=== PATIENT | female | born 1945 | race African-American/Black ===

== ENCOUNTER → 2017-01-03 | Outpatient (CLI) | payer MEDICARE, OTHER ==
[~2017-01-03] MED LIST: ACETAMINOPHEN500 M2 PO; AMANTADINE100 M1 PO; AMLODIPINE BESY10 MG PO; ASPIRIN81 MG PO; AUGMENTIN PO; BACLOFEN10 MG PO; BENZTROPINE MESY2 MG PO; COGENTIN PO; COMBIVENT; DILANTIN PO; GEODON60 MG PO; GLIPIZIDE10 MG PO; GLUCOPHAGE500 M1 PO; HALDOL PO; HALOPERIDOL10 MG PO; KEFLEX PO; LIPITOR PO; LO-DOSE ASPIRIN81 M1 PO; LOTENSIN20 MG PO; LOVASTATIN20 M2 PO; LOVASTATIN20 MG PO; MULTI-VITAMIN1 EAC1 PO; MULTIPLE VITAMI1 T11 PO; NORVASC PO; NORVASC10 MG PO; PHENYTOIN SODI100 M4 PO; PHENYTOIN SODI300 MG PO; Q PAP PO; Q-PAP325 MG PO; SEROQUEL PO; SEROQUEL400 MG PO; VOLTAREN75 MG PO; ZIPRASIDONE HCL60 MG PO
--- NOTE | ~2017-01-03 | CT57 ---
[facility] A Service of [facility] RADIOLOGY TEXT RESULTS PATIENT: JANUSZ RODRÍGUEZ LOCATION: [facility] : 47 UNIT #: [id number] AGE: [address]: Grace Cervantes APRN SEX: F ORDER DR: [id number] [facility] [address] [facility]. [place], [place] [address] [id number] O MR#: [id number] Acc #: [id number] NAME: JANUSZ RODRÍGUEZ : 1945 SEX: F STUDY DATE/TIME: 01/03/2017 13:23 UNIT: [facility] ROOM: STUDY DESCRIPTION: CT Chest Wo Cont Attending Physician: Grace Cervantes A.P.R.N. Referring Physician: Grace Cervantes A.P.R.N. Ordering Physician: Grace Cervantes A.P.R.N. Primary Care Physician: Florence Ortiz M.D. MEDICAL IMAGING REPORT This report is preliminary unless electronic signature is present EXAM CT chest without contrast. INDICATIONS Follow up pulmonary nodules. PROCEDURE Unenhanced CT of the chest. This CT exam was performed with one or more of the following radiation dose reduction techniques: automatic exposure control, adjustment of mA and/or kV according to patient size, and iterative reconstruction. COMPARISON 07/05/2016 FINDINGS Right upper lobe pulmonary nodule measures 1.2 cm and is unchanged. No new nodules. No adenopathy. No acute findings in the included upper abdomen. No aggressive-appearing bone lesion. The right upper lobe nodule is not significantly changed dating back to 08/09/2015. IMPRESSION Stable right upper lobe pulmonary nodule unchanged dating back to at least 08/09/2015. Recommend a follow-up chest CT in July of 2017 to document 2 years of stability. Dictated by... Florin Casanova M.D. THIS IS AN ELECTRONICALLY VERIFIED REPORT [facility] A Service of [facility] RADIOLOGY TEXT RESULTS PATIENT: JANUSZ RODRÍGUEZ LOCATION: [facility] : 47 UNIT #: [id number] AGE: [address]: Grace Cervantes APRN SEX: F ORDER DR: Florin Casanova M.D. at 01/09/2017 8:53 AM DARRIN/robbie TD: 01/03/2017 18:07 JOB #: [id number] MEDICAL IMAGING REPORT Page 1 of 1 COPY
== END | disposition home or self-care (01) ==
LOC: CCAT 12:55
DX: R91.1 Solitary pulmonary nodule (principal)
CPT/HCPCS: 71250